=== PATIENT | male | born 1940 | race Caucasian/White ===

== ENCOUNTER 2023-01-31 10:31 | Emergency (ER) | payer MEDICARE, OTHER ==
[~2023-01-31] VITALS: Ht 182.9 cm; Wt 70.2 kg
[2023-01-31] MEDS ORDERED: LIDOCAINE 1%/EPI 1:100,000 inj. 10 ML multi-dose vial IJ ONE (11:55)
[2023-01-31] MEDS ORDERED: TETanus/Pertussis (Acell)/Diphther VAC/PF (Tdap-Adult) 0.5ml syringe IMVAC ONE (12:15)
[2023-01-31 12:35] VITALS: BP 134/98; PULSE 89; RESP 18; TEMP 97.7; O2SAT 96
--- NOTE | 2023-01-31 13:54 | NUR ---
I agree with the assessment per Vanessa Mallory LVN
== END 2023-01-31 12:37 | disposition home or self-care (01) ==
LOC: ER 10:33
DX: S01.91XA Laceration without foreign body of unspecified part of head, initial encounter (principal); W01.198A Fall on same level from slipping, tripping and stumbling with subsequent striking against other object, initial encounter; Y93.89 Activity, other specified; Y92.89 Other specified places as the place of occurrence of the external cause; Y99.8 Other external cause status
CPT/HCPCS: 12001; 90471; 90715; 99284; A6449